=== PATIENT | male | born 1960 | race Caucasian/White ===

== ENCOUNTER 2018-10-21 11:00 | Emergency (ER) | payer SELFPAY ==
--- NOTE | 2018-10-21 11:11 | ED Physician Documentation ---
Hand Injury - HISTORIAN Historian: patient - HPI Stated Complaint: left hand 4th finger crushed Chief Complaint: Hand Injury Onset: just prior to arrival Where: work Severity: moderate Duration: worse Context: crush Location of Injury: L hand Modifying Factors: pain on movement Further Comments: yes (Per pt he was working and the concrete smahed his finger and he has pain in the mid joint of the left hand 4th finger. He has no change in ROM it is painful to touch.) - ROS CONST: no problems - PAST HX Past History: none Immunizations: UTD Allergies/Adverse Reactions: Allergies Allergy/AdvReac Type Severity Reaction Status Date / Time amoxicillin AdvReac Intermediate Upset Verified 10/21/18 11:13 Stomach Home Medications: Ambulatory Orders Medication Instructions Recorded NK 10/21/18 - SOCIAL HX Smoking History: cigarettes Alcohol Use: none Drug Use: none - FAMILY HX Family History: none - REVIEWED ASSESSMENTS Nursing Assessment Reviewed: Yes Vitals Reviewed: Yes ED Results Lab/Radiology - Radiology Radiology Impressions: Examination: Plain film left hand History: LEFT HAND, PAIN IN 4TH DIP JOINT AFTER SMASHING HAND BETWEEN A LOG CHAIN AND CONCRETE TODAY Comparison exams: None available Findings: 3 views of the left hand demonstrates small ossific density projecting posteriorly at the level of the 4th digit distal interphalangeal joint. No other cortical abnormality. No dislocation. No soft tissue abnormality. Impression: Likely small avulsion off the posterior base distal phalanx 4th digit. Electronically signed on Oct 21, 2018 11:48:31 AM CDT by: El Siegel Hand Injury Physical Exam - Exam General Appearance: no acute distress, alert Hand: nml inspection, no evidence of FB, tenderness (to touch at left 4th digit mid finger. FROM. Pulses + Sensation + and cap refill + ) Wrist: normal inspection, non-tender, no evidence of injury, normal ROM Neuro: sensation nml, motor nml Vascular: no vascular compromise Tendons: tendon function nml Skin: warm/dry, normal color Head/ENT: nml inspection Neck/Back: nml inspection Resp/CVS: chest non-tender, breath sounds nml, heart sounds nml, no resp. distress, lungs clear, reg. rate & rhythm Abdomen: non-tender Discharge Clincal Impression: Avulsion fracture of distal phalanx of finger Qualifiers: Encounter type: initial encounter Fracture type: closed Qualified Code(s): S62.639A - Displaced fracture of distal phalanx of unspecified finger, initial encounter for closed fracture Referrals: Primary Doctor,No [Primary Care Provider] - 2 Days Comments: 1. Keep finger immobilized until follow up with PCP in 2-4 days 2. Ice/OTC meds as directed for pain 3. Follow up with Dr Tamayo - you will get a call about a follow up 4. Return to ER for any increasing concerns Condition: Stable Disposition: 01 HOME, SELF-CARE Decision to Admit: NO Date of Decison to Admit: 10/21/18 Decision Time: 11:58
[2018-10-21] MEDS ORDERED: IBUPROFEN 400 MG TABLET PO ONE (11:58)
[2018-10-21 12:12] VITALS: BP 157/89
--- NOTE | 2018-10-21 15:26 | Diagnostic Imaging Report ---
<p>Your browser does not support iframes.</p> DAMIEN WIGGINS [facility] [address] [facility] [address] Report Submission Date: Oct 21, 2018 11:48:31 AM CDT Patient Study Name: DOUG KATHLEEN Date: Oct 21, 2018 11:19:00 AM CDT Modality Type: DX Gender: M Description: HAND 3 VIEWS OR MORE : 62 Institution: [facility] Physician: DAMIEN WIGGINS Examination: Plain film left hand History: LEFT HAND, PAIN IN 4TH DIP JOINT AFTER SMASHING HAND BETWEEN A LOG CHAIN AND CONCRETE TODAY Comparison exams: None available Findings: 3 views of the left hand demonstrates small ossific density projecting posteriorly at the level of the 4th digit distal interphalangeal joint. No other cortical abnormality. No dislocation. No soft tissue abnormality. Impression: Likely small avulsion off the posterior base distal phalanx 4th digit. Electronically signed on Oct 21, 2018 11:48:31 AM CDT by: El BLANCAS
== END 2018-10-21 12:07 | disposition home or self-care (01) ==
LOC: ED 11:00
DX: S62.635A Displaced fracture of distal phalanx of left ring finger, initial encounter for closed fracture (principal); W23.0XXA Caught, crushed, jammed, or pinched between moving objects, initial encounter; Y93.89 Activity, other specified; Y92.9 Unspecified place or not applicable; Y99.0 Civilian activity done for income or pay
CPT/HCPCS: 73130; 99282; 99283